=== PATIENT | male | born 1940 | race Caucasian/White ===

== ENCOUNTER → 2023-10-30 13:21 | Outpatient (REF) | payer MEDICARE, BC, SELFPAY ==
[2023-10-30 15:39] LABS: % Basophils 0.6 % (0-2); % Immature Granulocytes 0.2 % (0-0.5); % Lymphocytes 30.1 % (20.5-51.1); % Monocytes 10.5 % (1.7-9.3); % Neutrophils 54.6 % (42.2-75.2); Absolute Eosinophils 0.3 10^3/uL (0-0.7); Absolute Lymphocytes 1.9 10^3/uL (1.2-3.4); Absolute Monocytes 0.7 10^3/uL (0.1-0.6); Absolute Neutrophils 3.4 10^3/uL (1.4-6.5); Hematocrit 46.4 % (39.0-52.0); Hemoglobin 15.7 g/dL (13.0-18.0); Mean Corp Hgb Conc. 33.8 g/dL (33.0-37.0); Mean Corpuscular Hgb 30.7 pg (27.0-31.0); Mean Corpuscular Volume 90.6 fL (80.0-94.0); Mean Platelet Volume 10.1 fL (7.4-10.4); Nucleated Red Blood Cells % 0 % (-); Platelet Count 190 10^3/uL (130-400); Red Blood Cell Count 5.12 10^6/uL (4.70-6.10); Red Cell Dist. Width 14.4 % (11.5-14.5); White Blood Cell Count 6.2 10^3/uL (4.8-10.8)
[2023-10-30 15:52] LABS: ALT (SGPT) 19 U/L (0-50); AST (SGOT) 32 U/L (17-59); Albumin 4.6 g/dl (3.5-5.0); Alkaline Phosphatase 55 U/L (38-126); Blood Urea Nitrogen 37 mg/dl (9-20); Carbon Dioxide 29 mmol/L (22-30); Chloride 101 mmol/L (98-107); Glucose 75 mg/dl (70-99); Potassium 5.4 mmol/L (3.5-5.1); Sodium 137 mmol/L (135-145); Total Bilirubin 0.8 mg/dl (0.2-1.3); eGFR > 60.00
[2023-10-30 16:00] LABS: NT-proBNP 2090 pg/ml
[2023-10-30 16:23] LABS: TSH Reflex To Free T4 1.74 uIU/ml (0.47-4.68)
== END ==
LOC: HWLAB 13:21
PROVIDERS: ATTENDING PHYSICIAN Internal Medicine Cardiovascular Disease; FAMILY PHYSICIAN Family Medicine
DX: R06.02 Shortness of breath (principal); I10 Essential (primary) hypertension
CPT/HCPCS: 36415; 80053; 83880; 84443; 85025

== ENCOUNTER → 2024-05-02 11:20 | Outpatient (REF) | payer MEDICARE, BC, SELFPAY ==
[2024-05-02 16:29] LABS: Blood Urea Nitrogen 41 mg/dl (9-20); Calcium 9.6 mg/dl (8.4-10.2); Carbon Dioxide 28 mmol/L (22-30); Chloride 102 mmol/L (98-107); Glucose 82 mg/dl (70-99); Potassium 5.2 mmol/L (3.5-5.1); Sodium 137 mmol/L (135-145); eGFR 45.62
[2024-05-02 16:55] LABS: NT-proBNP 1420 pg/ml
== END ==
LOC: HWLAB 11:20
PROVIDERS: ATTENDING PHYSICIAN Internal Medicine Cardiovascular Disease; FAMILY PHYSICIAN Family Medicine
DX: I50.22 Chronic systolic (congestive) heart failure (principal)
CPT/HCPCS: 36415; 80048; 83880

== ENCOUNTER 2024-05-09 12:29 | Day surgery (SDC) | payer MEDICARE, BC, SELFPAY ==
[2024-05-09] VITALS (12 sets, daily range): BP systolic 125–162; BP diastolic 50–91; BMI 28.4; BMI 26.6
--- NOTE | 2024-05-09 10:28 | ED.GENMED ---
History of Present Illness
<Kurtis Calles PA-C - Last Filed: 05/09/24 11:14>
General
Chief Complaint: Heart Rate Problem
Time Seen by Provider: 05/09/24 10:10
History of Present Illness
History of Present Illness:
Patient is an 84-year-old male with past medical history of glaucoma, hypertension, GERD/Roberson's esophagus, history of PVCs, obesity, nonischemic cardiomyopathy/heart failure, CKD, and erectile dysfunction, here today for evaluation via EMS after
the patient had an outpatient cardiology visit and was found to have an abnormal EKG revealing evidence of complete heart block. Patient is relatively asymptomatic currently but has noted intermittent episodes of shortness of breath with exertion
over the past couple of weeks. No chest pain. No presyncope or syncope. No lower extremity pain or swelling.
Past History
<Kurtis Calles PA-C - Last Filed: 05/09/24 11:14>
Past History
ED Past Medical History: None
ED Past Surgical History: None
Review of Systems
<FELICITAS Tellez Last Filed: 05/09/24 11:14>
Review of Systems
All Other Systems: ROS reviewed and negative except as documented in HPI and ROS
Phy Exam
<FELICITAS Tellez Last Filed: 05/09/24 11:14>
Physical Exam
Physical Exam:
GENERAL: Alert , in no apparent distress
EYE: pupils equal and reactive
NECK: Supple, no significant adenopathy.
ENT: o/p clr, mmm.
CARDIAC: Regular rhythm, bradycardic
LUNGS: Clear breath sounds bilaterally, no acute respiratory distress, no wheezes/rales/rhonchi
NEUROLOGICAL: Alert and oriented, no focal neuro deficits
SKIN: Warm and dry, skin intact.
MUSCULOSKELETAL: No edema, well perfused.
PSYCH: Normal and appropriate interaction.
Course
<Kurtis Calles PA-C - Last Filed: 05/09/24 11:14>
Orders/Labs/Results
Orders:
Orders
05/09/24 Lunch
NPO
Allow oral meds: Yes
Allow clear liquids: Sips of Clears
05/09/24 10:26
Electrocardiogram (*1) Urgent
Reason for Study: Shortness of Breath
EKG- Treatment ONCE
CR Chest Portable - 1 View Urgent
Comment:
Reason For Exam: sob
Reason Study Needs to be Portable: Patient Unstable
05/09/24 10:37
Echo 2D MMode Color/Doppler Urgent
Reason for Study: heart block, bradycardia
05/09/24 10:40
Basic Metabolic Panel Urgent
Complete Blood Count/With Diff Urgent
Magnesium Urgent
NT-proBNP Urgent
Phosphorus Urgent
TSH Reflex To Free T4 Urgent
Troponin I Urgent
CeFAZolin 1 GRAM [Ancef] 1 gram 0.9% Sod Chloride 250 ml Irr [Nss Irrigation Bottle] 250 ml IRRIG CATH
CeFAZolin 2 GRAM [Ancef] 2 grams in 10 ml IV CATH
INT (Intravenous Needle Therapy) As Directed
Comment: #20 gauge IV catheter
Abnormal Lab Results
05/09/24
10:40
MCV 94.2 H fL
(80.0-94.0)
MCHC 32.4 L g/dL
(33.0-37.0)
Absolute Monos (auto) 0.8 H 10^3/uL
(0.1-0.6)
Monocytes % 10.4 H %
(1.7-9.3)
BUN 41 H mg/dl
(9-20)
Creatinine 1.5 H mg/dL
(0.7-1.3)
Magnesium 2.7 H mg/dl
(1.6-2.3)
05/09/24 10:40
05/09/24 10:40
Vital Signs
Initial and Last Documented VS:
Initial Vital Signs
Pulse Resp Pulse Ox
32 14 99
05/09/24 10:38 05/09/24 10:38 05/09/24 10:38
Last Documented Vital Signs
Temp Pulse Resp BP Pulse Ox
97.6 F 31 20 157/50 99
05/09/24 10:39 05/09/24 11:00 05/09/24 11:00 05/09/24 11:00 05/09/24 10:45
[place];Cortes Le, - Last Filed: 05/09/24 10:39>
Orders/Labs/Results
Orders:
Orders
05/09/24 Lunch
NPO
Allow oral meds: Yes
Allow clear liquids: Sips of Clears
05/09/24 10:26
Electrocardiogram (*1) Urgent
Reason for Study: Shortness of Breath
EKG- Treatment ONCE
CR Chest Portable - 1 View Urgent
Comment:
Reason For Exam: sob
Reason Study Needs to be Portable: Patient Unstable
05/09/24 10:37
Echo 2D MMode Color/Doppler Urgent
Reason for Study: heart block, bradycardia
05/09/24 10:40
Basic Metabolic Panel Urgent
Complete Blood Count/With Diff Urgent
Magnesium Urgent
NT-proBNP Urgent
Phosphorus Urgent
TSH Reflex To Free T4 Urgent
Troponin I Urgent
CeFAZolin 1 GRAM [Ancef] 1 gram 0.9% Sod Chloride 250 ml Irr [Nss Irrigation Bottle] 250 ml IRRIG CATH
CeFAZolin 2 GRAM [Ancef] 2 grams in 10 ml IV CATH
INT (Intravenous Needle Therapy) As Directed
Comment: #20 gauge IV catheter
Abnormal Lab Results
05/09/24
10:40
MCV 94.2 H fL
(80.0-94.0)
MCHC 32.4 L g/dL
(33.0-37.0)
Absolute Monos (auto) 0.8 H 10^3/uL
(0.1-0.6)
Monocytes % 10.4 H %
(1.7-9.3)
BUN 41 H mg/dl
(9-20)
Creatinine 1.5 H mg/dL
(0.7-1.3)
Magnesium 2.7 H mg/dl
(1.6-2.3)
05/09/24 10:40
05/09/24 10:40
Vital Signs
Initial and Last Documented VS:
Initial Vital Signs
Pulse Resp Pulse Ox
32 14 99
05/09/24 10:38 05/09/24 10:38 05/09/24 10:38
Last Documented Vital Signs
Temp Pulse Resp BP Pulse Ox
97.6 F 31 20 157/50 99
05/09/24 10:39 05/09/24 11:00 05/09/24 11:00 05/09/24 11:00 05/09/24 10:45
<Kurtis Calles PA-C - Last Filed: 05/09/24 11:14>
MDM/Problems Addressed
Differential Diagnosis Includes:
Patient is an 84-year-old male with past medical history of glaucoma, hypertension, GERD/Roberson's esophagus, history of PVCs, obesity, nonischemic cardiomyopathy/heart failure, CKD, and erectile dysfunction, here today for evaluation of a low heart
rate. Overall, patient appears very well. Vital signs remarkable for a heart rate in the 30s. Blood pressure normal. Physical examination otherwise unremarkable. EKG reviewed from office reveals evidence of complete heart block. We will obtain
a repeat EKG here. Will initiate laboratory testing and a chest x-ray. Will place on surveillance monitor. Will discuss with cardiology.
05/09/2024 11:13: EKG confirms third-degree heart block. Case discussed with cardiology who evaluated patient at bedside. Plan for defibrillator versus pacemaker after echocardiogram. Case discussed with hospitalist attending, Dr. Kay, who
accepts patient for admission at this time.
<Kurtis Calles PA-C - Last Filed: 05/09/24 11:14>
*EKG
Interpreted by ED Provider?: Yes
EKG Intrepretation Date: 05/09/24
EKG Intrepretation Time: 10:46
Interpretation: abnormal
Comparison EKG: changes noted
Heart Rate: 32
Rate: bradycardiac
Rhythm: other
Cascilla: left axis deviation
Interval: third degree heart block
QRS Pattern: left bundle branch block
*Critical Care Note
Total Time (30-74mins, 75-104mins- exclusive of procedures): Not Applicable
ED Attending Note
<Kurtis Calles PA-C - Last Filed: 05/09/24 11:14>
-
Portions of this chart may have been created with voice recognition software.� Occasional wrong word or��sound alike� substitutions may have occurred due to the inherent limitations of voice recognition software.
<Cortes Le DO - Last Filed: 05/09/24 10:39>
ED Attending Note
Patient seen and examined by attending physician: Yes
I performed the substantive portion of visit, reviewed & personally made and approve the management plan that is documented in note by myself or KIMANI.: Yes
ED Attending Note:
I agree with Kurtis's note
Patient sent to the emergency room from his cardiology office where he was found to have an abnormal EKG. He is in third-degree heart block. Patient remains relatively asymptomatic from this. Of note he had outpatient testing about a week ago and
received a call that his potassium was high and he should cut back his dose of his potassium sparing diuretic. He does take Entresto as well. Patient denies chest pain. He is able to ambulate as normal.
General: Awake, Alert, Oriented X3. No acute distress.
Vitals: unremarkable
Head: Atraumatic
Eyes: Pupils equal, EOMI
Throat: Airway intact, no exudates
Heart: Regular rate, no murmurs
Neuro: Nonfocal
Skin: Warm, dry, no rash
Extremities: pulses equal b/l, no edema
Labs pending but will need to rule out hyperkalemia
EKG shows third-degree heart block with a ventricular escape rhythm
Patient will need to be hospitalized suspect will need a pacemaker
Discharge Plan
Departure
Patient Disposition: Admit
Date of Disposition: 05/09/24
Time of Disposition: 11:12
Admit to: Telemetry
Admit to doctor: Sylvain Kay
Presentation/result/management discussed w/ accepting MD/DO: Hospitalist
Patient with high blood pressure during this ER visit?: No
Condition: Serious
Covid-19: Not Applicable
Discharge Problem:
Heart block AV third degree
Prescriptions:
No Action
lansoprazole [Prevacid] 30 MG capsule,delayed release(DR/EC)
30 mg PO DAILY
finasteride 5 MG tablet
5 mg PO DAILY
tetrahydrozoline [Visine] 30 ML drops
15 ml ophthalmic (eye) DAILY
melatonin 3 MG tablet
3 mg PO HS
carvedilol 3.125 MG tablet
3.125 mg PO BID AT 0800,1700
losartan 25 MG tablet
12.5 mg PO HS
fluticasone propionate [Flonase Allergy Relief] 9.9 ML spray,suspension
9.9 ml NS DAILY PRN (Reason: allergies)
eplerenone 25 MG tablet
25 mg PO DAILY
Referrals:
Lucio Shane MD [Family Provider] -
Interventions
Interventions:
*Risk Screen - Suicide Last Done: 05/09/24 10:39
*General Assessment Last Done: 05/09/24 10:39
*Neglect/Abuse Screening Last Done: 05/09/24 10:39
ED- Fall Risk Assessment Last Done: 05/09/24 10:39
*ED COVID-19 Vaccine History Last Done: 05/09/24 10:39
ED- Cardiac Assessment Last Done: 05/09/24 10:39
ED- Pulmonary Assessment Last Done: 05/09/24 10:39
Discharge Date and Time
Print Language: BULGARIAN
[2024-05-09 10:49] LABS: % Basophils 0.4 % (0-2); % Eosinophils 2.9 % (0-6); % Immature Granulocytes 0.3 % (0-0.5); % Lymphocytes 23.8 % (20.5-51.1); % Monocytes 10.4 % (1.7-9.3); % Neutrophils 62.2 % (42.2-75.2); Absolute Eosinophils 0.2 10^3/uL (0-0.7); Absolute Lymphocytes 1.8 10^3/uL (1.2-3.4); Absolute Monocytes 0.8 10^3/uL (0.1-0.6); Absolute Neutrophils 4.8 10^3/uL (1.4-6.5); Hematocrit 47.5 % (39.0-52.0); Hemoglobin 15.4 g/dL (13.0-18.0); Mean Corp Hgb Conc. 32.4 g/dL (33.0-37.0); Mean Corpuscular Hgb 30.6 pg (27.0-31.0); Mean Corpuscular Volume 94.2 fL (80.0-94.0); Mean Platelet Volume 9.6 fL (7.4-10.4); Nucleated Red Blood Cells % 0 % (-); Platelet Count 191 10^3/uL (130-400); Red Blood Cell Count 5.04 10^6/uL (4.70-6.10); White Blood Cell Count 7.7 10^3/uL (4.8-10.8)
[2024-05-09 11:03] LABS: Blood Urea Nitrogen 41 mg/dl (9-20); Calcium 9.6 mg/dl (8.4-10.2); Carbon Dioxide 26 mmol/L (22-30); Chloride 103 mmol/L (98-107); Glucose 93 mg/dl (70-99); Magnesium 2.7 mg/dl (1.6-2.3); Potassium 4.9 mmol/L (3.5-5.1); Sodium 138 mmol/L (135-145); eGFR 45.62
--- NOTE | 2024-05-09 11:04 | EDRN ---
the pts blood pressure is currently still elevated, provider notified, Aretha WALLACE currently at the pts bedside
[2024-05-09 11:14] LABS: NT-proBNP 2130 pg/ml
--- NOTE | 2024-05-09 11:25 | EDRN ---
bedside echo performed
[2024-05-09 11:32] LABS: TSH Reflex To Free T4 1.42 uIU/ml (0.47-4.68)
--- NOTE | 2024-05-09 11:39 | W.PN.UPDATE ---
Update Note
Progress Note Update
Please see scanned H&P
Mr. Garcia is an 84 yo male with HF with mid-range EF 41%, NICM, bifascicular block, PVCs, NSVT, HTN and GERD, who presents to the ER from the outpatient cardiology office with bradycardia and complete heart block pulse 28 bpm on EKG in the office.
He was at the office for his routine 6 month follow up visit and was transported via EMS to the ER. He denies any symptoms presently. He admits to SOB/MORRISON with exertion, especially walking an incline and the stairs, for the last 2-3 months. EKG
in the ER with complete heart block, ventricular escape, 32 bpm. BP is stable. He is being admitted for a pacemaker today, echo to be done now to assess LVEF.
Outpatient international marketing specialist is Dr. Rodriguez.
--- NOTE | 2024-05-09 12:06 | EDRN ---
this RN called the receiving IVU nurse Alice BURNETT and gave verbal report
--- NOTE | 2024-05-09 15:27 | CM ---
CM following for DC planning needs.
Met w/ patient's sig. other as patient was in a procedure.
Pt. resides w/ sig. other in a split level home. Functionally, patient is indep. at baseline w/ ADLs, mobility without the use of any assisted device.
Pt. still drives.
Pt. has RX plan and plans to use [facility] for prescription needs.
Anticipated DC plan is for home, no needs.
Will cont. to follow.
--- NOTE | 2024-05-09 17:23 | ITS.CL.PACE ---
[employer] - Pacemaker Implant
Pacemaker Implant
Procedure Report:
Date of Procedure: May 09, 2024.
Procedure: Pacemaker Implantation.
Indication: The pacemaker is for the treatment of nonreversible symptomatic bradycardia due to third degree atrioventricular block.
Performing physician: Dani Rodriguez MD, [facility].
Implants:
Pulse Generator: Medtronic; Model# [id number]; Serial# [id number].
RA Lead: Medtronic; Model# 5076-52cm; Serial# [id number].
RV Lead: Medtronic; Model# 3830-69cm; Serial# [id number].
Technique: A time out was performed. The procedure site was identified. The patient was anesthetized by the anesthesia service. Preoperative cefazolin was administered. The patient was prepped and draped in the usual fashion. Local anesthetic was
applied to the right prepectoral subcutaneous tissue. A 3 inch incision was made along the right deltopectoral groove. Dissection was carried to the fascia. The right cephalic vein was easily isolated and proximal and distal control with 2-0 Vicryl
suture. Using a micropuncture needle to access the cephalic vein under direct visualization a wire was advanced into the central circulation. A 7 Fr introducer was placed to allow two 0.35 J wires to be advanced. The leads were introduced with
hemostatic peel away introducer sheaths. The RV lead was placed using utilizing the SmartCloud His delivery catheter ([id number]) that was advanced to the left bundle area as confirmed by fluoroscopy in the [place] and CAMPOS projections. The lead tip was
advanced. PVC morphology was reviewed. No satisfactory location was identified (no W pattern observed) despite extensive RV mapping of the septum. The lead was screwed into position with serial turns. Septal engagement was confirmed with gentle
torque applied to the guide sheath. After each series of turns (2-3) unipolar sensed morphology and impedance, and paced morphology of V1 was analyzed. The RV lead was placed in the perhaps the 6-7th location evaluated. The final spot had a short
LVAT. The long guiding sheath was cut and removed from the RV without change in lead position, impedance, sensing, or capture. The ventricular lead was secured to the pectoralis muscle and fascia with two 0-silk sutures. The atrial lead was placed
in the right atrial appendage. 8 volt pacing from each lead did not capture the diaphragm. The atrial leads was secured to the pectoralis muscle and fascia. A subcutaneous pocket was created with Bovie cautery. Hemostasis was excellent. The leads
were appropriately attached to the device. The pocket was irrigated with antibiotic solution. The device and leads were placed in the pocket. The incision was closed in three layers with absorbable suture. Steri-strips and a silver impregnated
dressing were placed. Estimated blood loss was less than 20 ml. There were no complications. Fluoroscopy time 14.2 minutes and DAP 5.41 mGyCM2. The device was then interrogated after skin closure. No IV contrast was administered.
Lead Analysis:
RA lead: P: 1.8 V; Threshold: 0.75 V @ 0.4 ms; Impedance: 551 ohms.
RV lead (bipolar): R: 4.6 mV; Threshold: 0.5 V @ 0.4 ms; Impedance: 836 ohms. LVAT (stim to peak V5/V6) is less than 70 ms.
Final Programming: DDDR 60-130 bpm.
Conclusion: Uncomplicated Medtronic pacemaker implant. The pacing system is MRI conditional.
Recommendation: Routine post pacemaker care.
cc: Lucio Shane MD.
--- NOTE | 2024-05-09 18:36 | PTCARENOTE ---
Pt admitted from ED with complete heart block noted at a cardiology appointment. Pt denied any discomfort on admission, heart rate 28-40. Pt went to EP lab where pacemaker was placed in right anterior chest. Dressing dry and intact, pressure
dressing over wound. Activity restrictions reviewed with pt and his SO, good understanding verbalized. Pt OOB to bathroom, voiding without difficulty. Chest done in Dept. Telemetry shows vent. paced rhythm.
[2024-05-09] MEDS: ANCEF 5 IV (20:12)
[2024-05-09] MEDS: ENTRESTO 24 MG/26 MG 1 TAB PO (20:13)
--- NOTE | 2024-05-09 22:51 | PTCARENOTE ---
Rec'd pt at change of shift. Pt AAO*3, in NSR with occasional AV pacing on TELE monitor, and VSS. Pt denies any active pain or discomfort. RU chest-wall dressing CDI. Pt aware of RUE restrictions and with immobilizer on right arm. Pt resting
with call higuera in reach. Plan of care ongoing.
[2024-05-09] MEDS: TYLENOL 650 MG PO (23:46)
[2024-05-10 05:07] VITALS: BP 147/82
[2024-05-10] MEDS: ANCEF 5 IV (05:19)
[2024-05-10 05:58] LABS: Blood Urea Nitrogen 30 mg/dl (9-20); Calcium 8.9 mg/dl (8.4-10.2); Carbon Dioxide 22 mmol/L (22-30); Chloride 105 mmol/L (98-107); Estimated Creatinine Clearance 44 ml/min; Glucose 90 mg/dl (70-99); Potassium 4.3 mmol/L (3.5-5.1); Sodium 135 mmol/L (135-145); eGFR 59.63
[2024-05-10 06:04] LABS: Hematocrit 42.5 % (39.0-52.0); Hemoglobin 14.4 g/dL (13.0-18.0); Mean Corp Hgb Conc. 33.9 g/dL (33.0-37.0); Mean Corpuscular Hgb 30.3 pg (27.0-31.0); Mean Corpuscular Volume 89.3 fL (80.0-94.0); Mean Platelet Volume 9.8 fL (7.4-10.4); Platelet Count 143 10^3/uL (130-400); Red Blood Cell Count 4.76 10^6/uL (4.70-6.10); Red Cell Dist. Width 13.4 % (11.5-14.5); White Blood Cell Count 6.1 10^3/uL (4.8-10.8)
--- NOTE | 2024-05-10 07:38 | W.PN.UPDATE ---
Addendum entered and electronically signed by Bernardino Russell MD 05/10/24 08:41:
84 yo male admitted with complete heart block. s/p PPM yesterday. No complaints this AM. Exam with RRR, no murmurs, no edema. Site looks good. Tele and EKG: mostly As, [employer] Hostess. CXR: no PTX.
Will plan for discharge today with office follow up.
Original Note:
Update Note
Progress Note Update
Status post pacemaker yesterday for third-degree atrioventricular block
-Telemetry stable
-Pressure dressing removed, Aquacel with small amount of drainage
-No hematoma, no pocket fullness, no edema in right arm
-Activity restrictions reviewed with the patient
-We discussed when to return to the hospital should the need arise, he verbalized understanding
-Follow-up arranged
--- NOTE | 2024-05-10 07:40 | W.DS.TRANS ---
DC Summary - [employer] Hostess
-
Discharge Instructions:
Discharge Diagnosis/Procedures Complete heart block
Pacemaker implant 05/09/2024
Diet Low Cholesterol,Low Sodium
Activity No strenuous activity
Additional Activity See attached instructions
Driving Restrictions No driving for 1 week
Bathing Restrictions OK to Shower
Specialty Instructions Weigh Daily
Instructions:
Stand-Alone Forms: DC Inst - Implanted Device
Changes to Home Medications: No
Discharge Medications:
DC Medications w/original date entered in [facility]
finasteride 5 mg tablet 5 mg PO DAILY 10/25/12
lansoprazole 30 mg capsule,delayed release (Prevacid) 30 mg PO DAILY 10/25/12
eplerenone 25 mg tablet 12.5 mg PO DAILY 06/27/19
melatonin 3 mg tablet 3 mg PO HS 06/27/19
acetaminophen 325 mg tablet (Tylenol) 650 mg PO Q6HPRN PRN mild pain 05/09/24
dapagliflozin propanediol 10 mg tablet (Farxiga) 10 mg PO DAILY 05/09/24
peg [id number] 1 %-0.2 %-0.2 % eye drops 1 drp BOTH EYES DAILYPRN PRN allergies 05/09/24
sacubitril 24 mg-valsartan 26 mg tablet (Entresto) 1 tab PO BID 05/09/24
sildenafil 100 mg tablet 50 mg PO HS 05/09/24
therapeutic multivitamin 1 tab PO DAILY 05/09/24
vitamin C 500 mg-multivitamin with minerals chewable tablet (Emergen-C) 2 tab PO DAILY 05/09/24
Home Medication Changes
Pending Results: No
[2024-05-10 07:59] VITALS: BP 154/93
[2024-05-10] MEDS: INSPRA 12.5 MG PO (08:16)
[2024-05-10] MEDS: PROTONIX 40 MG PO (08:19)
[2024-05-10] MEDS: ENTRESTO 24 MG/26 MG 1 TAB PO (08:20)
[2024-05-10] MEDS: FARXIGA 10 MG PO (08:20)
[2024-05-10] MEDS: PROSCAR 5 MG PO (08:20)
--- NOTE | 2024-05-10 09:09 | PTCARENOTE ---
Assumed care of pt from night RN. Pt received awake and alert, Ox3. Immobilizer removed from right arm, dsg remains CDI. Pt re-educated on right extremity precautions. He denies any pain or discomfort. For D/C today.
--- NOTE | 2024-05-10 10:21 | PTCARENOTE ---
All d/C info reviewed with pt and spouse, all questions answered. Pt D/C'd home with spouse.
== END 2024-05-10 10:22 | disposition home or self-care (01) ==
LOC: CATH 12:29
PROVIDERS: Nurse Practitioner; Physician Assistant; ATTENDING PHYSICIAN Internal Medicine Cardiovascular Disease; EMERGENCY PHYSICIAN Emergency Medicine; FAMILY PHYSICIAN Family Medicine
DX: I44.2 Atrioventricular block, complete (principal); R00.1 Bradycardia, unspecified; K21.00 Gastro-esophageal reflux disease with esophagitis, without bleeding; K22.70 Barrett's esophagus without dysplasia; I13.0 Hypertensive heart and chronic kidney disease with heart failure and stage 1 through stage 4 chronic kidney disease, or unspecified chronic kidney disease; N18.9 Chronic kidney disease, unspecified; I50.9 Heart failure, unspecified; I42.8 Other cardiomyopathies; I45.2 Bifascicular block; N52.9 Male erectile dysfunction, unspecified; Z88.5 Allergy status to narcotic agent; I49.3 Ventricular premature depolarization; R06.02 Shortness of breath
CPT/HCPCS: 33208; 71045; 80048; 83735; 83880; 84100; 84443; 84484; 85025; 85027; 93005; 93306; 99285; C1769; C1785; C1887; C1892; C1898

== ENCOUNTER → 2024-06-05 12:50 | Outpatient (REF) | payer MEDICARE, BC, SELFPAY ==
[2024-06-05 16:32] LABS: Blood Urea Nitrogen 35 mg/dl (9-20); Calcium 9.5 mg/dl (8.4-10.2); Carbon Dioxide 30 mmol/L (22-30); Chloride 100 mmol/L (98-107); Glucose 85 mg/dl (70-99); Potassium 5.2 mmol/L (3.5-5.1); Sodium 135 mmol/L (135-145); eGFR 59.63
== END ==
LOC: HWLAB 12:50
PROVIDERS: ATTENDING PHYSICIAN Internal Medicine Cardiovascular Disease; FAMILY PHYSICIAN Family Medicine
DX: N18.2 Chronic kidney disease, stage 2 (mild) (principal)
CPT/HCPCS: 36415; 80048

== ENCOUNTER → 2024-10-28 14:00 | Outpatient (REF) | payer MEDICARE, BC, SELFPAY | LOC: EMG 14:00 | PROVIDERS: ATTENDING PHYSICIAN Orthopaedic Surgery; FAMILY PHYSICIAN Family Medicine | DX: R20.0 Anesthesia of skin (principal); G56.02 Carpal tunnel syndrome, left upper limb | CPT/HCPCS: 95886; 95909 ==